=== PATIENT | female | born 1950 | race Caucasian/White ===

== ENCOUNTER 2020-06-27 16:30 | Emergency (ER) | payer OTHER ==
[~2020-06-27] VITALS: Ht 172.7 cm; Wt 108.6 kg
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
[2020-06-27] MEDS ORDERED: HYDROcodone/APAP 5/325MG 1 TAB TABLET PO ONE (18:15)
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
[2020-06-27 19:21] VITALS: BP 147/79
--- NOTE | 2020-06-27 19:28 | RAD ---
STUDY: CT of the right lower extremity without contrast INDICATION: Possible lateral tibial plateau fracture. COMPARISON: Same day tibia/fibula radiographs. TECHNIQUE: Axial CT imaging of the right lower extremity performed without contrast. Coronal and sagi ttal reformats were obtained. One or more of the following individualized dose reduction techniques were utilized for this examinat ion: 1. Automated exposure control 2. Adjustment of the mA and/or kV according to patient size 3. Use of iterative reconstruction technique. FINDINGS: Acute, depressed lateral tibial plateau fracture the articular surface is depressed by up to 5 mm. Th e fracture is not seen to cross the midline and no acute fracture is identified at the medial compart ment. The patella is normally located. No displaced or depressed femur fracture though very mild impa ction injury at the weightbearing lateral femoral condyle is difficult to exclude. Tricompartmental osteoarthrosis with greatest involvement of the medial femorotibial compartment wher e there is joint space narrowing, subchondral sclerosis and cystic change. Tricompartmental osteophyt e formation. Small knee joint effusion. No localized popliteal fossa hematoma. Grossly intact PCL. In completely assessed ACL. The extensor mechanism remains intact. IMPRESSION: 1. Acute lateral tibial plateau fracture with articular surface depression up to approximately 5 mm. There may be very subtle impaction injury involving the adjacent weightbearing lateral femoral condy le. No acute fracture seen at the medial or patellofemoral compartments. 2. 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 Electronically signed by: KAREN VILLAGOMEZ MD (06/27/2020 7:26 PM) [facility]
[2020-06-27] MEDS ORDERED: ONDA4TAB7 PO (20:33)
[2020-06-27] MEDS ORDERED: HYDR-2155 PO (20:33)
== END 2020-06-27 21:00 | disposition home or self-care (01) ==
LOC: ER 16:30
DX: S82.201A Unspecified fracture of shaft of right tibia, initial encounter for closed fracture (principal); S20.219A Contusion of unspecified front wall of thorax, initial encounter; S30.811A Abrasion of abdominal wall, initial encounter; E11.9 Type 2 diabetes mellitus without complications; I10 Essential (primary) hypertension; G35 Multiple sclerosis; V43.62XA Car passenger injured in collision with other type car in traffic accident, initial encounter; Y93.89 Activity, other specified; Y92.89 Other specified places as the place of occurrence of the external cause; Y99.8 Other external cause status
CPT/HCPCS: 70450; 71250; 72125; 73590; 73700; 74176; 82947; 99285

== ENCOUNTER → 2020-08-02 | Outpatient (CLI) | payer OTHER ==
[~2020-08-02] MED LIST: HYDR-2155 PO; ONDA4TAB7 PO
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
== END ==
LOC: US 12:41
PROVIDERS: ATTEND Family Medicine
DX: N64.89 Other specified disorders of breast (principal); N64.1 Fat necrosis of breast
CPT/HCPCS: 76641

== ENCOUNTER → 2020-09-13 | Outpatient (CLI) | payer OTHER ==
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
== END ==
LOC: US 14:47
PROVIDERS: ATTEND Family Medicine
DX: N64.89 Other specified disorders of breast (principal)
CPT/HCPCS: 76642

== ENCOUNTER → 2020-10-27 | Outpatient (CLI) | payer OTHER ==
--- NOTE | 2020-10-27 17:00 | RAD ---
INDICATION: 70 year-old female presents for further evaluation of posttraumatic collections left TECHNIQUE: Targeted high resolution sonography of the region of clinical concern was performed. COMPARISON: None FINDINGS: 1.6 x 1.1 x 0.9 cm hypoechoic nodule is seen in the left breast, previously 1.6 x 1.6 x 1.2 cm. This is located at 3:00 position 6-7 cm from nipple. IMPRESSION: Probably benign finding. RECOMMENDATION: Recommend 3 month ultrasound follow up. BI-RADS 3: Probably Benign Electronically signed by: Obey Huber MD (10/27/2020 4:58 PM) [id number]
== END ==
LOC: US 13:00
PROVIDERS: ATTEND Family Medicine
DX: R92.2 Inconclusive mammogram (principal)
CPT/HCPCS: 76641

== ENCOUNTER → 2021-01-17 | Outpatient (CLI) | payer OTHER ==
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
== END ==
LOC: US 14:04
PROVIDERS: ATTEND Family Medicine
DX: N64.89 Other specified disorders of breast (principal)
CPT/HCPCS: 76642

== ENCOUNTER → 2021-06-27 | Day surgery (SDC) | payer OTHER ==
[~2021-06-27] MED LIST changes: +BUPIVACAINE MPF 0.25% 10 ML VIAL. ONE; +DEXAMETHASONE SOD PHOS 10 MG/ML VIAL. ONE; +IOHEXOL 300 MG/ML 50 ML VIAL. ONE; +LIDOCAINE 1% PF 30 ML VIAL. ONE
[2021-06-27 15:30] VITALS: BP 148/76
== END | disposition home or self-care (01) ==
LOC: SURG 14:31
PROVIDERS: ATTEND Anesthesiology
DX: M54.16 Radiculopathy, lumbar region (principal); I10 Essential (primary) hypertension; K21.9 Gastro-esophageal reflux disease without esophagitis; E11.9 Type 2 diabetes mellitus without complications; G35 Multiple sclerosis; Z98.890 Other specified postprocedural states; Z93.3 Colostomy status; Z79.4 Long term (current) use of insulin; Z79.899 Other long term (current) drug therapy
CPT/HCPCS: 64483; 64484; A4209; A4657; A4930; J1100; J3490; Q9967